=== PATIENT | female | born 1945 | race American Indian/Alaskan Native ===

== ENCOUNTER 2018-06-14 08:59 | Outpatient (CLI) | payer MEDICARE ==
--- NOTE | 2018-06-14 16:40 | Cat Scan Report ---
PROCEDURE: CT chest with contrast. TECHNIQUE: Computerized axial tomography of the chest was performed during the IV injection of iodin ated nonionic contrast. CT DOSE LENGTH PRODUCT: 1582.4 mGycm HISTORY: Other specified types of non-Hodgkin lymphoma COMPARISONS: CT chest 05/30/2015. Dictation not available. FINDINGS: The trachea and central bronchi appear normal. There are some cystic changes in both lungs. This is w orse in the upper lobes. The findings are consistent with emphysema. There is some streaky pleural-ba sed opacity located posteriorly in the right upper lobe. This is consistent with pleural parenchymal scarring. There are no definite mass lesions. There are no signs of pneumonia. There are no pleural e ffusions. The left lobe of the thyroid is enlarged. This could be better evaluated with an ultrasound study. The thoracic aorta has a normal caliber without evidence of dissection. The central pulmonary arteries enhance normally. There is no mediastinal adenopathy. The heart size is normal. The thoraci c skeleton appears intact. IMPRESSION: Enlargement of the left lobe of the thyroid. Emphysema. Pleural parenchymal scarring in the right upper lobe. No evidence of active lymphoma. This document is electronically signed by Sai Yancey MD., June 14 2018 04:38:26 PM ET
--- NOTE | 2018-06-14 16:47 | Cat Scan Report ---
PROCEDURE: CT abdomen and pelvis with contrast. TECHNIQUE: Computerized axial tomography of the abdomen and pelvis was performed after the IV inject ion of iodinated nonionic contrast. CT DOSE LENGTH PRODUCT: Not provided mGycm HISTORY: Other specified types of non-Hodgkin lymphoma COMPARISONS: CT abdomen and pelvis 05/30/2015. Dictation not available. FINDINGS: The lung bases are clear. There are no pleural effusions. The heart size is normal. The liver, pancre as and spleen appear normal. There are small gallstones present. There is no biliary dilatation. The adrenal glands are not enlarged. Both kidneys appear normal in size and configuration. The abdominal aorta has a normal caliber. There is no retroperitoneal adenopathy. The gastrointestinal tract is unr emarkable. A normal appendix is visualized. The bladder, uterus and adnexal regions appear normal. 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 There is severe disc spac e narrowing at L4-5 and L5-S1. There is grade 2 spondylolisthesis at L4-5. IMPRESSION: Cholelithiasis. Grade 2 spondylolisthesis at L4-5. No evidence of active lymphoma. This document is electronically signed by Sai Yancey MD., June 14 2018 04:45:26 PM ET
== END 2018-06-14 09:00 | disposition home or self-care (01) ==
LOC: CT 08:59
PROVIDERS: ATTEND Internal Medicine Hematology & Oncology
DX: K80.20 Calculus of gallbladder without cholecystitis without obstruction (principal); M43.16 Spondylolisthesis, lumbar region; J43.9 Emphysema, unspecified; E04.9 Nontoxic goiter, unspecified
CPT/HCPCS: 71260; 74177; Q9967

== ENCOUNTER 2020-11-15 10:51 | Outpatient (CLI) | payer MEDICARE ==
[2020-11-15 12:12] LABS: Blood Urea Nitrogen 14 mg/dL (7-17)
--- NOTE | 2020-11-15 15:28 | Cat Scan Report ---
CT CHEST, ABDOMEN, AND PELVIS WITH IV CONTRAST INDICATION: HISTORY OF NON HODGKINS LYMPHOMA. TECHNIQUE: Axial CT images were obtained through the chest, abdomen, and pelvis after 100 cc Omnipaque [address] All [address] scans at this location are performed using CT dose reduction for ALARA by means of aut omated exposure control. COMPARISON: CT chest, abdomen and pelvis with contrast from 06/14/2018. FINDINGS: HEART: No significant abnormality. CORONARY ARTERY CALCIFICATION: Mild. THORACIC AORTA: There is mild aortic atherosclerosis without other significant abnormalities. LYMPH NODES: No significant adenopathy. TRACHEA AND BRONCHI: There is increased mass effect on the trachea secondary to enlargement of the le ft thyroid lobe. No other significant abnormality. LUNGS: Moderate emphysema is again noted with biapical scarring and additional bilateral chronic appe aring parenchymal changes. No suspicious nodule, mass or consolidation. PLEURA: No significant pleural effusion. No pneumothorax. LIVER: No significant abnormality. GALLBLADDER: Cholelithiasis without evidence of acute cholecystitis. BILE DUCTS: No significant abnormality. PANCREAS: No significant abnormality. SPLEEN: No significant abnormality. ADRENALS: No significant abnormality. RIGHT KIDNEY and URETER: Unchanged subcentimeter right upper renal pole cyst. No other significant ab normality. LEFT KIDNEY and URETER: No significant abnormality. STOMACH and SMALL BOWEL: No significant abnormality. COLON: There is noninflamed sigmoid and descending diverticulosis without other significant abnormali ties. APPENDIX: No significant abnormality. PERITONEUM: No free fluid. No free air. No fluid collection. LYMPH NODES: No significant adenopathy. ABDOMINAL AORTA and ARTERIES: Normal caliber of the aorta with moderate atherosclerosis. No acute abn ormality. IVC and VEINS: No significant abnormality. URINARY BLADDER: No significant abnormality. REPRODUCTIVE ORGANS: No significant abnormality. ADDITIONAL FINDINGS: The left thyroid lobe appears larger with increased mass effect on the trachea a nd similar generalized heterogeneity, likely due to the presence of multiple nodules. A representativ e left lower pole nodule on image 281 of series 301 measures up to 1.3 cm. BONES: No acute abnormality, aggressive appearing lesion or other significant interval changes. IMPRESSION: 1. No CT evidence of active lymphoma or other acute findings. 2. Interval enlargement of the left thyroid lobe with multiple probable left thyroid nodules as above . A thyroid ultrasound would be helpful for further evaluation. Signer Name: Silvano Tomlinson MD Signed: 11/15/2020 3:24 PM Workstation Name: [id number]
--- NOTE | 2020-11-15 17:06 | Cat Scan Report ---
CT neck w con INDICATION / CLINICAL INFORMATION: 74 years Female; HISTORY OF NON HODGKINS LYMPHOMA. TECHNIQUE: Contiguous thin cut axial images obtained through the neck following IV contrast. Sagittal and acosta l reconstructions performed by the technologist. All CT scans at this location are performed using CT dose reduction for ALARA by means of automated exposure control. COMPARISON: None available. FINDINGS: MUCOSAL SPACE: The motion and positioning as well as the beam hardening from the patient's body habit us and dental amalgam significantly degrades the image quality. However, no. Definitive focal lesions are seen involving the visualized oral pharyngeal soft tissues at. The epiglottis appears appropriat e in size at. The motion particularly degrades the laryngeal soft tissues which otherwise appear andrae sly symmetric at. LYMPH NODES: There is no clear CT evidence of pathologic cervical lymphadenopathy. SALIVARY GLANDS: There is a 4 mm calcification projected within the left submandibular gland near the hilum. However, no significant surrounding inflammatory changes or ductal dilatation is identified. There appears be more subtle focus of increased attenuation centrally on the right. There are fatty atrophic changes of the visualized left parotid gland at. Left gland demonstrates mor e typical attenuation without clear evidence of calcification. THYROID GLAND: There is notable heterogeneous enlargement of the left lobe of the thyroid with subste rnal extension and correlation would be needed regarding goiter. There is associated moderate deviati on of the trachea towards the right with mild narrowing. PARANASAL SINUSES: Visualized paranasal sinuses and mastoid air cells are essentially clear. SPINE: There are advanced degenerative disc changes at C6-7. VASCULAR STRUCTURES: There is moderate calcified plaque involving right carotid bifurcation. Milder f indings are noted on the left. There are notable fibrotic involving visualized upper lungs with bulla formation. IMPRESSION: 1. The study is limited by motion. However, there is notable heterogeneous enlargement of the left th yroid gland which may reflect goiter and correlation would be needed. 2. There is a 4 mm sialolith within the central left submandibular gland as detailed above without ev idence of significant surrounding inflammatory changes or ductal dilatation. 3. There is no clear CT evidence of pathologic cervical lymphadenopathy on the current study in this patient with given history of lymphoma. Signer Name: Sai Kim MD Signed: 11/15/2020 5:01 PM Workstation Name: [id number]
== END 2020-11-15 10:52 | disposition home or self-care (01) ==
LOC: CT 10:51
PROVIDERS: ATTEND Internal Medicine Hematology & Oncology
DX: J43.9 Emphysema, unspecified (principal); E04.9 Nontoxic goiter, unspecified; I25.10 Atherosclerotic heart disease of native coronary artery without angina pectoris; I70.0 Atherosclerosis of aorta; K80.20 Calculus of gallbladder without cholecystitis without obstruction; N28.1 Cyst of kidney, acquired; K57.30 Diverticulosis of large intestine without perforation or abscess without bleeding; Z85.72 Personal history of non-Hodgkin lymphomas
CPT/HCPCS: 36415; 70491; 71260; 74177; 82565; 84520; Q9967